=== PATIENT | male | born 1930 | race African-American/Black ===

== ENCOUNTER 2017-01-27 15:21 | Emergency (ER) | payer OTHER, MEDICAID ==
[~2017-01-27] VITALS: Ht 167.6 cm; Wt 66.0 kg
[~2017-01-27 15:21] MED LIST: ASPI-1035 PO; CYAN10009 PO; DIXL10 PO; DORZ10DR9 EACHEYE; FOLI-43 PO; HYDR25TA PO; IBUP-1509 PO; OMEP20TA80 PO; SENN-22 PO; SENN-27 PO
[2017-01-27 16:24] LABS: BASOPHILS % 0.2 % (0.0-2.0); EOSINOPHILS % 1.5 % (0.0-5.0); HEMATOCRIT. 46.5 % (42.0-52.0); HEMOGLOBIN. 16.3 g/dL (14.0-18.0); LYMPHOCYTES % 12.1 % (20.0-50.0); MEAN CORPUSCULAR HEMOGLOBIN 35.6 pg (28.0-32.0); MEAN CORPUSCULAR HGB CONC 35.1 g/dL (31.0-37.0); MEAN CORPUSCULAR VOLUME 101.4 fL (80.0-94.0); MONOCYTES % 14.5 % (2.0-8.0); NEUTROPHILS % 71.7 % (40.0-76.0); PLATELET 133 x1000/uL (130-400); RED BLOOD CELL COUNT 4.58 mill/uL (4.7-6.1); WHITE BLOOD COUNT 7.5 x1000/uL (4.5-11.0)
[2017-01-27 16:30] LABS: CHLORIDE 100 mEq/L (98-107); INDEX HEMOLYSI 1 (1-3); INDEX ICTERIC 1 (1-4); INDEX LIPEMIC 1 (1-3)
[2017-01-27 16:32] LABS: DIFFERENTIAL COMMENT 1
[2017-01-27 16:35] LABS: ANION GAP 11; CARBON DIOXIDE 30 mEq/L (21-32); UREA NITROGEN BLOOD 10 mg/dL (7-21); eGFR > 60 mL/min (>60)
[2017-01-27 16:37] LABS: CLARITY URINE TURBID (CLEAR); COLOR URINE YELLOW (YELLOW); GLUCOSE URINE NEGATIVE (NEGATIVE); KETONES URINE NEGATIVE (NEGATIVE); LEUKOCYTE ESTERASE URINE 3+ (NEGATIVE); NITRITE URINE POSITIVE (NEGATIVE); OCCULT BLOOD URINE 2+ (NEGATIVE); PH URINE 5.5 (4.5-8.0); PROTEIN URINE 1+ (NEGATIVE); UROBILINOGEN URINE 0.2 E.U./dL (0.2-1.0)
[2017-01-27 16:53] LABS: ADD RBC MORPHOLOGY YES; PLATELET ESTIMATE SLIGHTLY DECREASED
[2017-01-27 17:00] LABS: WBC URINE TNTC /hpf (0-2)
[2017-01-27 17:01] LABS: BACTERIA URINE 2+
[2017-01-27 17:04] LABS: SQUAMOUS EPITHELIAL CELL URINE FEW /lpf (RARE/1+)
[2017-01-27] MEDS ORDERED: PHENAZOPYRIDINE HCL 200MG TABLET PO ONE (17:30)
[2017-01-27] MEDS ORDERED: SULFAMETHOXAZOLE/TRIMETHOPRIM 800/160MG TABLET PO ONE (17:30)
[2017-01-27 18:45] VITALS: BP 144/88
== END 2017-01-27 18:55 | disposition home or self-care (01) ==
LOC: ER 17:10
DX: N39.0 Urinary tract infection, site not specified (principal); J45.909 Unspecified asthma, uncomplicated; Z79.899 Other long term (current) drug therapy; Z91.041 Radiographic dye allergy status; Z91.013 Allergy to seafood; Z79.82 Long term (current) use of aspirin; I10 Essential (primary) hypertension; I44.1 Atrioventricular block, second degree
CPT/HCPCS: 36415; 80048; 81001; 84484; 85025; 93005; 99285